=== PATIENT | female | born 1975 | race Caucasian/White ===

== ENCOUNTER 2017-01-24 09:51 | Emergency (ER) | payer OTHER ==
[~2017-01-24] VITALS: Ht 165.1 cm; Wt 115.2 kg
[2017-01-24 10:07] VITALS: BP 145/69
--- NOTE | 2017-01-24 10:20 | NUR ---
41/F BIB SELF c/o lower back pain x2 wks. PT denies recent injury, denies incontinence ambulatory with slow steady gait;hx OF osteoarthritis. PT STATES . DENIES N/V/D; SKIN IS PINK/WARM/DRY; AAOX4 ; LUNGS CLEAR BL; HR EVEN AND REGULAR; PT DENIES ANY FEVER, CP, SOB, OR COUGH AT THIS TIME; PATIENT STATES STABBING PAIN OF 7/10 AT THIS TIME;PATIENT POSITIONED FOR COMFORT; HOB ELEVATED; BEDRAILS UP X2; BED DOWN. ER MD MADE AWARE OF PT STATUS.
--- NOTE | 2017-01-24 10:27 | NUR ---
ER MD DR CINRTON EVALUATING PT AT BEDSIDE
[2017-01-24] MEDS ORDERED: DEXAMETHASONE 4 MG/ML VIAL PO ONE (10:35)
[2017-01-24] MEDS ORDERED: METHOCARBAMOL 500 MG TAB PO ONE (10:35)
[2017-01-24] MEDS ORDERED: IBUPROFEN 600 MG TAB PO ONE (10:35)
--- NOTE | 2017-01-24 10:40 | NUR ---
PT TAKEN TO X RAY VIA W/C ACCOMPANIED BY [facility]
[2017-01-24] MEDS ORDERED: DEXAMETHASONE 4 MG/ML VIAL ONE (10:47)
[2017-01-24 11:43] VITALS: BP 128/80
--- NOTE | 2017-01-24 11:43 | NUR ---
Patient discharged with v/s stable. Written and verbal after care instructions given and explained. Patient alert, oriented and verbalized understanding of instructions. Ambulatory with steady gait. All questions addressed prior to discharge. ID band removed. Patient advised to follow up with PMD. Rx of MOTRIN & ROBAXIN given. Patient educated on indication of medication including possible reaction and side effects. Opportunity to ask questions provided and answered.
--- NOTE | 2017-01-27 09:03 | NUR ---
CLARIFICATION. ADMINISTERED DEXAMETHASONE 4MG/ML VIAL GAVE 10 MG PER ORAL PER MD ORDERED AT 11 AM 01/24/17 .
== END 2017-01-24 11:43 | disposition home or self-care (01) ==
LOC: MED 09:51
DX: G89.29 Other chronic pain (principal); M54.5 Low back pain
CPT/HCPCS: 72110; 81002; 81025; 99284; J1100